=== PATIENT | male | born 1990 | race Caucasian/White ===

== ENCOUNTER 2016-05-24 17:52 | Emergency (ER) | payer BC, OTHER ==
[2016-05-24 18:11] VITALS: BP 119/62
[2016-05-24] MEDS ORDERED: Ibuprofen TAB* 400 MG PO ONE (18:13)
--- NOTE | 2016-05-24 19:36 | UC ---
FLU HPI - HPI Summary HPI Summary: FOUR DAYS OF BODY ACHES CHILLS FEVER COUGH. NO NAUSEA NO VOMITING. - History of Current Complaint Chief Complaint: UCRespiratory Stated Complaint: DIZZINESS, FEVER, COUGH Time Seen by Provider: 05/24/16 18:14 Hx Obtained From: Patient, Family/Applications Packager Onset/Duration: Sudden Onset, Lasting Days, Still Present Severity Currently: Mild Severity Initially: Mild Pain Intensity: 4 Pain Scale Used: 0-10 Numeric Associated Signs & Symptoms: Positive: F/C, Myalgia, Sore Throat Related Hx: Possible Flu/Infectious Exposure - Risk Factors Influenza Risk Factors: Negative - Allergy/Home Medications Allergies/Adverse Reactions: Allergies Allergy/AdvReac Type Severity Reaction Status Date / Time No Known Allergies Allergy Verified 05/24/16 18:10 PMH/Surg Hx/FS Hx/Imm Hx Previously Healthy: Yes Endocrine History Of: Denies: Diabetes, Thyroid Disease Cardiovascular History Of: Denies: Cardiac Disorders, Hypertension Respiratory History Of: Denies: COPD, Asthma GI/ History Of: Denies: Ulcer - Surgical History Surgical History: None - Family History Known Family History: Negative: Respiratory Disease - Social History Occupation: Employed Full-time Lives: With Family Alcohol Use: Weekly Substance Use Type: None Smoking Status (MU): Never Smoked Tobacco Type: Smokeless Tobacco Amount Used/How Often: 1/2 CAN PER DAY Length of Time of Smoking/Using Tobacco: 5 YEARS Have You Smoked in the Last Year: No - CHEWING TOBACCO Review of Systems Constitutional: Fever, Chills, Fatigue Skin: Negative Eyes: Negative ENT: Sore Throat Respiratory: Negative, Cough Cardiovascular: Negative Gastrointestinal: Negative Genitourinary: Negative Motor: Negative Neurovascular: Negative Musculoskeletal: Negative Neurological: Negative Psychological: Negative All Other Systems Reviewed And Are Negative: Yes Physical Exam Triage Information Reviewed: Yes Appearance: Well-Appearing, Well-Nourished, Pain Distress Vital Signs: Initial Vital Signs Temp 102.6 F 05/24/16 18:07 Pulse 108 05/24/16 18:07 Resp 16 05/24/16 18:07 BP 119/62 05/24/16 18:07 Pulse Ox 99 05/24/16 18:07 Vital Signs Reviewed: Yes Eye Exam: Normal ENT Exam: Normal ENT: Positive: Normal ENT inspection, Hearing grossly normal, Pharynx normal, TMs normal Dental Exam: Normal Neck exam: Normal Respiratory Exam: Normal Respiratory: Positive: Chest non-tender, Lungs clear, Normal breath sounds, No respiratory distress, No accessory muscle use Cardiovascular Exam: Normal Cardiovascular: Positive: RRR, No Murmur, Pulses Normal, Brisk Capillary Refill Abdominal Exam: Normal Musculoskeletal Exam: Normal Musculoskeletal: Positive: Strength Intact Neurological Exam: Normal Neurological: Positive: Alert, Muscle Tone Normal Psychological Exam: Normal Psychological: Positive: Normal Response To Family Flu Course/Dx - Differential Dx/Diagnosis Differential Diagnosis/HQI/PQRI: Broncholiolitis, Influenza, Upper Respiratory Infection Provider Diagnoses: INFLUENZA Discharge - Discharge Plan Condition: Stable Disposition: HOME Prescriptions: Oseltamivir CAP* [Tamiflu CAP*] 75 mg PO BID #10 cap Patient Education Materials: Influenza (ED) Referrals: [facility]IAN REFERRAL [Outside] No Primary Care Phys,NOPCP [Primary Care Provider] -
== END 2016-05-24 19:05 | disposition home or self-care (01) ==
LOC: UCEAST 17:52
DX: J11.1 Influenza due to unidentified influenza virus with other respiratory manifestations (principal); F17.220 Nicotine dependence, chewing tobacco, uncomplicated
CPT/HCPCS: 87502; 99212; A9270-GY; G0463

== ENCOUNTER 2018-08-20 12:07 | Emergency (ER) | payer OTHER ==
[2018-08-20 12:50] VITALS: BP 124/76
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
== END 2018-08-20 14:24 | disposition home or self-care (01) ==
LOC: UCEAST 12:07
DX: S43.402A Unspecified sprain of left shoulder joint, initial encounter (principal); S80.12XA Contusion of left lower leg, initial encounter; V20.4XXA Motorcycle driver injured in collision with pedestrian or animal in traffic accident, initial encounter; Y92.410 Unspecified street and highway as the place of occurrence of the external cause; Z87.891 Personal history of nicotine dependence
CPT/HCPCS: 99211; G0463

== ENCOUNTER 2018-10-06 15:23 | Emergency (ER) | payer OTHER ==
[2018-10-06] MEDS ORDERED: Al Hydrox/Mg Hydrox/Simet LIQ* 30 ML UDC PO ONE (16:29)
[2018-10-06] MEDS ORDERED: Ondansetron ODT TAB* 4 MG SL ONE (16:29)
[2018-10-06] MEDS ORDERED: Lidocaine 2% VISCOUS* 15 ML UDC PO ONE (16:29)
[2018-10-06] MEDS ORDERED: Pantoprazole TAB * 40 MG TAB PO ONE (16:30)
--- NOTE | 2018-10-06 16:36 | ED ---
GI/ HPI - HPI Summary HPI Summary: Patient is a 27 y/o M presenting to ED with complaints of N/V/D and abdominal pain. He states that last night, 10/05/18, he felt nauseous and subsequently started vomiting, "black, chunky, coffee ground looking" emesis. He notes onset of abdominal pain at the time as well. He reports multiple episodes of vomiting throughout the night until 0500 today, 10/06/18. Patient reports no N/V since. He additionally states that he has been having diarrhea recently, stating that he has noted some of the bowel movements have been productive of black stool. He denies nausea at present. Patient reports that he takes prilosec and zyrtec interchangeably for years. PMHx of GERD. Patient has never had colonoscopy nor an endoscopy. He reports some diaphoresis but denies dizziness. Patient does not note frequently ibuprofen or Tylenol usage. He reports occasional alcohol usage, does not go through withdrawals. He states he will occasional have a couple of beers. No other PMHx, no PSHx. He has been able to keep down all the food that he had today, noting most recent food was in waiting room of ED. Pt does not report any fever, chills, erythema of eyes, sore throat, CP, SOB, cough , dysuria, hematuria, myalgia, edema, rash, or dizziness. 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 Nothing is noted to aggravate/alleviate Sx. Home medications and allergies are reviewed. - History of Current Complaint Chief Complaint: EDGIBleed Time Seen by Provider: 10/06/18 16:27 Stated Complaint: VOMITING BLOOD PER PT Hx Obtained From: Patient Onset/Duration: Started Days Ago - 10/05/18 evening, Resolved - N/V Timing: Lasting Days - 10/05/18 evening Current Severity: Mild Pain Intensity: 3 Associated Signs and Symptoms: Positive: Nausea, Vomiting, Diarrhea, Diaphoresis , Abdominal Pain, Other: - Pt does not report any erythema of eyes, sore throat , SOB, myalgia, edema, rash.. Negative: Dizziness, Fever, Hematuria, Dysuria, Chills, Cough, Chest Pain Aggravating Factor(s): Nothing Alleviating Factor(s): Nothing - Allergy/Home Medications Allergies/Adverse Reactions: Allergies Allergy/AdvReac Type Severity Reaction Status Date / Time No Known Allergies Allergy Verified 10/06/18 15:30 PMH/Surg Hx/FS Hx/Imm Hx Endocrine/Hematology History: Denies: Hx Diabetes, Hx Thyroid Disease Cardiovascular History: Denies: Hx Hypertension Respiratory History: Denies: Hx Asthma, Hx Chronic Obstructive Pulmonary Disease (COPD) GI History: Denies: Hx Ulcer Infectious Disease History: No Infectious Disease History: Denies: Hx Clostridium Difficile, Hx Hepatitis, Hx Human Immunodeficiency Virus (HIV), Hx of Known/Suspected MRSA, Hx Shingles, Hx Tuberculosis, Traveled Outside the [place] in Last 30 Days - Family History Known Family History: Negative: Respiratory Disease - Social History Alcohol Use: Daily Substance Use Type: Reports: Marijuana Substance Use Comment - Amount & Last Used: daily Smoking Status (MU): Former Smoker Type: Smokeless Tobacco Amount Used/How Often: 1/2 CAN PER DAY Length of Time of Smoking/Using Tobacco: 5 YEARS Have You Smoked in the Last Year: No - CHEWING TOBACCO Review of Systems Positive: Skin Diaphoresis. Negative: Fever, Chills Negative: Erythema Negative: Sore Throat Negative: Chest Pain Negative: Shortness Of Breath, Cough Positive: Abdominal Pain, Vomiting, Diarrhea, Nausea Negative: dysuria, hematuria Negative: Myalgia, Edema Negative: Rash Neurological: Other - negative - dizziness All Other Systems Reviewed And Are Negative: Yes Physical Exam - Summary Physical Exam Summary: Constitutional: Well-developed, Well-nourished, Alert. (-) Distressed Skin: Warm, Dry HENT: Normocephalic; Atraumatic Eyes: Conjunctiva normal Neck: Musculoskeletal ROM normal neck. (-) JVD, (-) Stridor, (-) Tracheal deviation Cardio: Rhythm regular, rate normal, Heart sounds normal; Intact distal pulses; The pedal pulses are 2+ and symmetric. Radial pulses are 2+ and symmetric. (-) Murmur Pulmonary/Chest wall: Effort normal. (-) Respiratory distress, (-) Wheezes, (-) Rales Abd: Soft, (-) tenderness, (-) Distension, (-) Guarding, (-) Rebound Musculoskeletal: (-) Edema Lymph: (-) Cervical adenopathy Neuro: Alert, Oriented x3 Triage Information Reviewed: Yes Vital Signs On Initial Exam: Initial Vitals Temp Pulse Resp BP Pulse Ox 98.9 F 83 19 148/99 98 10/06/18 15:27 10/06/18 15:27 10/06/18 15:27 10/06/18 15:27 10/06/18 15:27 Vital Signs Reviewed: Yes Diagnostics - Vital Signs Vital Signs Temp Pulse Resp BP Pulse Ox 10/06/18 15:27 98.9 F 83 19 148/99 98 - Laboratory Result Diagrams: 10/06/18 16:43 10/06/18 16:43 Lab Statement: Any lab studies that have been ordered have been reviewed, and results considered in the medical decision making process. - Ultrasound No standard instances Ultrasound Interpretation Completed By: Radiologist Summary of Ultrasound Findings: GALLBALDDER US IMPRESSION: No evidence of cholelithiasis or acute cholecystitis. This report was reviewed by Dr. Holt. NIYA Course/Dx - Course Course Of Treatment: Patient is a 27 y/o M presenting to ED with complaints of N /V/D and abdominal pain. He states that last night, 10/05/18, he felt nauseous and subsequently started vomiting, "black, chunky, coffee ground looking" emesis. He notes onset of abdominal pain at the time as well. He reports multiple episodes of vomiting throughout the night until 0500 today, 10/06/18. Patient reports no N/V since. He additionally states that he has been having diarrhea recently, stating that he has noted some of the bowel movements have been productive of black stool. He denies nausea at present. Patient reports that he takes prilosec and zyrtec interchangeably for years. PMHx of GERD. Patient has never had colonoscopy nor an endoscopy. He reports some diaphoresis but denies dizziness. Patient does not note frequently ibuprofen or Tylenol usage. He reports occasional alcohol usage, does not go through withdrawals. Labs showed MPV 6.8, absolute monos 1.2, glucose 103, calcium 10.4, total bilirubin 1.6, lipase 24. During ED course, patient received 40 mg PO Protonix. GALLBALDDER US IMPRESSION: No evidence of cholelithiasis or acute cholecystitis.Patient will be discharged to home and follow up with PCP and GI. - Diagnoses Provider Diagnoses: Heavy alcohol use, Coffee ground emesis Discharge - Sign-Out/Discharge Documenting (check all that apply): Patient Departure - discharge Patient Received Moderate/Deep Sedation with Procedure: No - Discharge Plan Condition: Stable Disposition: HOME Patient Education Materials: Alcohol Intoxication (ED), Acute Nausea and Vomiting (ED) Referrals: Damon Jordan MD [Medical Doctor] - 5 Days [facility] [Outside] - 3 Days Additional Instructions: RETURN TO THE EMERGENCY DEPARTMENT FOR CHANGING OR WORSENING SYMPTOMS. FOLLOW UP WITH YOUR PRIMARY CARE PHYSICIAN IN 2-3 DAYS, GASTROENTEROLOGY IN 3-5 DAYS. - Attestation Statements Document Initiated by Scribe: Yes Documenting Scribe: ARTEM FALCON Provider For Whom Scribe is Documenting (Include Credential): MINESH HOLT MD Scribe Attestation: I, ARTEM FALCON, scribed for MINESH HOLT MD on 10/06/18 at 1944. Status of Scribe Document: Ready
[2018-10-06 16:56] LABS: ABS Basophils 0.1 10^3/ul (0-0.2); ABS Eosinophils 0.2 10^3/ul (0-0.6); ABS Lymphocytes 2.5 10^3/ul (1.0-4.8); ABS Monocytes 1.2 10^3/ul (0-0.8); Hematocrit 45 % (42-52); Hemoglobin 15.3 g/dL (14.0-18.0); Lymphocyte % 25.4 %; Mean Corpuscular HGB Conc 34 g/dL (31-36); Mean Corpuscular Hemoglobin 31 pg (27-31); Mean Corpuscular Volume 92 fL (80-94); Mean Platelet Volume 6.8 fL (7.4-10.4); Nucleated Red Blood Cells % 0.1; Platelet Count 379 10^3/uL (150-450); Red Blood Count 4.89 10^6 /uL (4.18-5.48); Red Cell Distribution Width 13 % (10-15)
[2018-10-06 17:08] LABS: Albumin 4.9 g/dL (3.2-5.2); Albumin/Globulin Ratio 1.6 (1-3); BUN/Creatinine Ratio 11.2 (8-20); C Reactive Protein 1.65 mg/L (<8.01); Calcium 10.4 mg/dL (8.6-10.3); EGFR Non-African American 104.2 (>60); Globulin 3.1 g/dL (2-4); Potassium 3.8 mmol/L (3.5-5.0); Total Bilirubin 1.6 mg/dL (0.2-1.0)
[2018-10-06 18:59] VITALS: BP 115/85
== END 2018-10-06 18:57 | disposition home or self-care (01) ==
LOC: ED 15:23
DX: R11.10 Vomiting, unspecified (principal); Z72.89 Other problems related to lifestyle; Z87.891 Personal history of nicotine dependence
CPT/HCPCS: 36415; 76705; 80053; 83605; 83690; 85025; 86140; 99282; A9270-GY